=== PATIENT | male | born 1985 | race Caucasian/White ===

== ENCOUNTER 2016-12-16 10:35 | Day surgery (SDC) | payer MEDICARE, MEDICAID ==
[~2016-12-16] VITALS: Ht 177.8 cm; Wt 70.0 kg
[~2016-12-16 10:35] MED LIST: CETI-263 PO; LUBI8CAP4 PO; Lactated Ringer's 1,000 ML IV ONE; MESA800T PO; METH-295 PO; POLY17PO6 PO
[2016-12-16] MEDS ORDERED: Propofol 10,000 mCg/mL 20 mL Inj ONE (10:36)
[2016-12-16 10:51] VITALS: BP 130/87; PULSE 68; RESP 14; O2SAT 98
[2016-12-16] MEDS ORDERED: Ondansetron 2 mg/mL 2 mL Inj IVPUSH PRN (11:15)
[2016-12-16] MEDS ORDERED: MetoCLOpramide 5 mg/mL 2 mL Inj IVPUSH PRN (11:15)
[2016-12-16] MEDS: Lactated Ringer's 1,000 ML IV SCH ×2 (11:21→11:52)
[2016-12-16 11:58] VITALS: BP 80/50; PULSE 57; RESP 14; O2SAT 96
[2016-12-16 12:07] VITALS: BP 98/74; PULSE 68; RESP 16; O2SAT 95
[2016-12-16 12:15] VITALS: BP 116/75; PULSE 70; RESP 16; O2SAT 100
--- NOTE | 2016-12-16 13:17 | ENDO ---
[address] [address] ENDOSCOPY PROCEDURE PATIENT: HARLEY GONZALEZ : 1985 MR#: [id number] ADMIT: 12/16/2016 JOB ID: [id number] DATE: 12/16/2016 PRIMARY PROVIDER: Lakeshia Rivers DO PROCEDURE: Colonoscopy with biopsies. INDICATIONS: A 31-year-old male with longstanding ulcerative colitis had severe constipation. He is on both mesalamine and Amitiza. EQUIPMENT: [employer] H [employer] L. SEDATION: Monitored anesthesia as provided by Dr. Ashok Granda. COMPLICATIONS: None identified. BOWEL PREPARATION: Suboptimal with copious amounts of liquid and some fibrous stool debris throughout requiring a lot of suction. We filled an entire wall canister and got part way up the second canister during this procedure. PROCEDURAL INFORMATION: After the risks and benefits were explained, written and verbal informed consent was obtained. The patient was brought into the endoscopy suite and placed into the left lateral decubitus position. Sedation was achieved as above. A digital rectal examination accomplished. No significant pathology appreciated. The scope was introduced into the rectum and advanced under direct visualization to the level of the cecum, as identified by a stool filled cecum and an obvious ileocecal valve. The scope was slowly withdrawn to carefully examine the mucosa for any defects or lesions. Multiple direct views were made through the dentate line for exclusion of pathology. The colon was decompressed. The scope removed the patient who tolerated the procedure well. FINDINGS: There was some mild obvious proctocolitis from the dentate line to about 30 cm from the anal verge. Beyond that, the colon appeared in essence normal. There was, however, copious amounts of stool debris requiring heavy suction as above. Segmental biopsies were taken from the ascending, transverse, descending, sigmoid and finally rectum for histopathologic analysis. ENDOSCOPIC DIAGNOSES: 1. Mild proctocolitis. 2. Suboptimal bowel prep. RECOMMENDATIONS: 1. Await histopathology. 2. Repeat colonoscopy two years' time. 3. The patient is encouraged to definitely continue Amitiza 8 mcg twice per day. The patient may benefit from additional fiber supplementation. 4. Continue mesalamine 1600 mg twice a day.
--- NOTE | 2016-12-16 14:38 | PCM.HPANE ---
Patient Data Surgeon Admitting Provider: Attending Provider:Garry Anderson MD Primary Care Physician:Lakeshia Rivers DO Other Provider:Reta Dupreeingham Anesthesia Reason for Visit Ulcerative Colitis Ht/WT & BMI Body Mass Index Allergies Coded Allergies: No Known Allergies (Verified Allergy, Unknown, 11/27/14) Past Anesthesia History Anesthesia History: Denies:: Abnormal Airway, Anesthesia Reactions, Difficult Intubation, Fam Anesthesia Reaction, Fam Malignant Hypertherm, Malignant Hyperthermia Diabetes History Hx Diabetes?: No MRSA MRSA: No Medications Reported Medications Lubiprostone (Amitiza)8 Mcg Capsule8 Mcg PO BID 11/27/14 Polyethylene Glycol 3350 (Miralax)17 Gm Powd.pack17 Gm PO DAILY 11/27/14 Cetirizine HCl 10 Mg Sntxnm92 Mg PO DAILY #30 TABLET Ref 0 11/27/[address] (Asacol HD)800 Mg Tablet.dr1,600 Mg PO BID 11/27/14 Discontinued Reported Medications Methylphenidate 10 Mg Kuwqio94 Mg PO DAILY 30 Days Ref 0 11/28/14 History HEENT History: Denies:: Abnormal Airway Difficult Intubation Dysphagia Hearing Problem Hx of Heart Problems?: No Hx of Respiratory Problem?: No Neurological History: Denies:: CVA Hx of GI Problems?: Yes Gastrointestinal History: Denies:: Cirrhosis Diverticulitis Gastroesphageal Reflux Hiatal Hernia Rectal Bleeding Hx Surgeries?: No Hx Any Other Health Problems?: No Hx Diabetes: No Hx Alcohol Use: No Smoking Status: Never Smoker Stop/Bang Risk Assessment Category Category 1A: Patient has history of documented sleep apnea, and HAS NOT received any narcotic, sedative or anesthesia administration during this stay. Category 1B: Patient has history of documented sleep apnea, and HAS received any narcotic , sedative or anesthesia administration during this stay Category 2: Patient has SUSPECTED Obstructive Sleep Apnea, and HAS received any narcotic , sedative or anesthesia administration during this stay. Category 3: Patient has SUSPECTED Obstructive Sleep Apnea and HAS NOT received narcotic, sedative or anesthesia administration during this stay. Category 4: Outpatient in Procedural Areas with known sleep apnea or who screen positive for High Risk via the STOP/BANG questionnaire. Exam Exam General Appearance: Alert, Oriented X3, Cooperative, No Acute Distress HEENT/AIRWAY: MP 2 Lungs: Clear to Auscultation, Normal Air Movement Heart: Exam Unremarkable, Regular Rate/Rhythm, No Murmurs/Rubs/Gallops Plan Impression Patient chart reviewed, patient interviewed and anesthestic plan with risks, benefits, and alternatives discussed, and informed consent obtained. NPO Status: > 8 hrs ASA Physical Status: ASA2 Mod Systemic Disease Anesthetic Plan: MAC Bene/Risks/Altern/Consents: Yes HP Complete Prior to Induction: Yes Ashok Granda MD Dec 16, 2016 07:27
--- NOTE | 2016-12-16 14:39 | PCM.ANEP2 ---
Post Anesthesia Evaluation ASA/CMS Post Anesthesia VS in Patient's Normal Range?: Yes Resp Stable; Airway Patent?: Yes CV Function & Hydration Stable: Yes Mental Status Recovered?: Yes Pain control Satisfactory?: Yes N/V Control Satisfactory?: Yes Ashok Granda MD Dec 16, 2016 14:38
--- NOTE | 2016-12-16 14:39 | PCM.ANEP1 ---
Post Anesthesia Phase 1 PACU Phase 1 Assessment Vital Signs Vital Signs Date Time Temp Pulse Resp B/P Pulse Ox O2 Delivery O2 Flow Rate FiO2 12/16/16 12:15 70 16 116/75 100 Room Air 12/16/16 12:07 68 16 98/74 95 Room Air 12/16/16 11:58 36.6 57 14 80/50 96 Room Air 12/16/16 10:51 37.1 68 14 130/87 98 Room Air Anesthetic Administered: MAC Level of Alertness: Awake, talking CARTWRIGHT's with Equal Strength: Yes Pain: No Nausea or Vomiting: No Oxygen Delivery: Room Air Lungs: Clear to Auscultation, Normal Air Movement Dermatome Level: Full Sensation Ashok Granda MD Dec 16, 2016 14:39
--- NOTE | 2016-12-17 12:39 | PATH ---
SURGICAL PATHOLOGY Attending Physician:Vikas Rebolledo CASE STATUS: Signed Out PATIENT NAME: HARLEY GONZALEZ PID: [id number] : 1985 DATE COLLECTED:12/16/2016 19:53 SPECIMEN: 1: Colon, Biopsy 2: Colon, Biopsy 3: Colon, Biopsy 4: Colon, Biopsy 5: Rectum, Biopsy CLINICAL HISTORY: ULCERATIVE COLITIS 1). ASCENDING COLON BIOPSY 2). TRANSVERSE COLON BIOPSY 3). DESCENDING COLON BIOPSY 4). SIGMOID COLON BIOPSY 5). RECTAL BIOPSY FINAL DIAGNOSIS: 1. 4.BIOPSIES, ASCENDING COLON, TRANSVERSE COLON, DESCENDING COLON, AND SIGMOID COLON: FRAGMENTS OF NORMAL-APPEARING COLON MUCOSA IN ALL FOUR SPECIMENS. Negative for significant architectural distortion. Negative for significant inflammation. Negative for dysplasia and malignancy. 5.RECTAL BIOPSY: CHANGES OF CHRONIC ACTIVE PROCTITIS WITH REACTIVE EPITHELIAL CHANGES. Negative for dysplasia and malignancy. ICD10 code K51.9 GROSS DESCRIPTION: The specimen is received in five formalin filled containers labeled with the patient's name. 1). The specimen is sublabeled "ascending colon" and consists of 2 extremely tiny portions of tissue which aggregate to 0.2 x 0.2 x 0.2 CM. The specimen is entirely submitted in cassette 1A. 2). The specimen is sublabeled "transverse colon" and consists of 2 portions of tissue which aggregate to 0.3 x 0.2 x 0.2 CM. The specimen is entirely submitted in cassette 2A. 3). The specimen is sublabeled "descending colon" and consists of a 0.3 x 0.3 x 0.3 CM portion of tissue which is entirely submitted in cassette 3A. 4). The specimen is sublabeled "sigmoid colon" and consists of a 0.3 x 0.3 x 0.2 CM portion of tissue which is entirely submitted in cassette 4A. 5). The specimen is sublabeled "rectum" and consists of 2 portions of tissue which aggregate to 0.4 x 0.4 x 0.63 CM. The specimen is entirely submitted in cassette 5A. 12/16/2016 [facility] MICRO DESCRIPTION: See diagnosis. ICD-9 CODES: CPT CODES: 1: 81849 2: 59549 3: 60960 4: 85671 5: 50107 Electronically Signed Out Garry Luna MD [facility] [address], [place] [address] Technical component performed at [facility], [address], [place], [address]
== END 2016-12-16 23:59 | disposition home or self-care (01) ==
LOC: END 10:35
PROVIDERS: ATTEND Internal Medicine Gastroenterology
DX: K51.90 Ulcerative colitis, unspecified, without complications (principal); K59.00 Constipation, unspecified; F90.9 Attention-deficit hyperactivity disorder, unspecified type; R62.50 Unspecified lack of expected normal physiological development in childhood
CPT/HCPCS: 45380; 88305; J7120